=== PATIENT | female | born 1970 | race Caucasian/White ===

== ENCOUNTER 2024-04-26 05:59 | Emergency (ER) | payer OTHER, SELFPAY ==
[2024-04-26 06:07] VITALS: BP 148/74
--- NOTE | 2024-04-26 10:49 | ED.GENMED ---
History of Present Illness
General
Chief Complaint: Back Pain
Source: patient
Time Seen by Provider: 04/26/24 10:38
History of Present Illness
History of Present Illness:
54-year-old female presents complaining of severe pain to the lower back that radiates down the left leg. She notes sharp pain to the anterior gregory. No chest pain or shortness of breath. No fever. No known injury. No urinary retention. She
denies any bowel incontinence or perianal anesthesia. This was associated at the onset with nausea vomiting and diarrhea. The vomiting has slowed the diarrhea slightly. She is not sleeping because of the pain. She is trying [id number]
medications as well as leftover pain medicine without relief. She has an appointment with orthopedics in 3 days. No other complaints.
Phy Exam
Physical Exam
Physical Exam:
General: Uncomfortable appearing female no acute respiratory distress
HEENT: Normocephalic atraumatic
Heart: Regular rate and rhythm
Lungs: Clear no wheeze
Musculoskeletal exam: Tender over the anterior left gregory. Good range of motion left lower extremity
Neurologic exam: Good sensation to the lower extremities bilateral patellar reflex 2+ positive straight leg raise left leg
Vascular: 2+ dorsalis pedis pulse bilateral feet
Skin is warm without a rash
Course
Orders/Labs/Results
Orders:
Orders
04/26/24 10:48
0.9% Sodium Chloride 1000 ml [Nss] 1,000 ml IV BOLUS
Dexamethasone Sod Phosphate [Decadron] 10 mg IV NOW STA
Ketorolac [Toradol] 15 mg IV NOW STA
diazePAM [Valium Injection] 5 mg IV NOW STA
04/26/24 12:51
HYDROmorphone [Dilaudid] 0.5 mg IV NOW STA
Venous Doppler Lwr Ext Left [US Periph Venous LOWER Ext LT] Urgent
Comment:
Reason For Exam: pain in leg
Vital Signs
Initial and Last Documented VS:
Initial Vital Signs
Temp Pulse Resp BP Pulse Ox
98.5 F 78 20 148/74 100
04/26/24 06:07 04/26/24 06:07 04/26/24 06:07 04/26/24 06:07 04/26/24 06:07
Last Documented Vital Signs
Temp Pulse Resp BP Pulse Ox
99.3 F 86 16 152/87 100
04/26/24 11:16 04/26/24 13:13 04/26/24 13:13 04/26/24 13:13 04/26/24 13:13
MDM/Problems Addressed
Differential Diagnosis Includes:
Severe low back pain rating down the left leg. No red flags to suggest cauda equina. No fever to suggest infectious source. I suspect radiculopathy. [id number] medications are not helping. Will try Decadron Toradol Valium
*Critical Care Note
Total Time (30-74mins, 75-104mins- exclusive of procedures): Not Applicable
Update Note
Update Note:
Patient received some relief with medicine here. She was concerned about DVT in her leg. Ultrasound was ordered which was negative for DVT. I suspect radiculopathy as source of discomfort. No rash to suggest shingles. Patient will be discharged
home with prednisone and muscle relaxer and pain medicine. She has an appoint with orthopedics in 2 days
ED Attending Note
-
Portions of this chart may have been created with voice recognition software.� Occasional wrong word or��sound alike� substitutions may have occurred due to the inherent limitations of voice recognition software.
Discharge Plan
Departure
Patient Disposition: Home (Routine Discharge)
Date of Disposition: 04/26/24
Time of Disposition: 14:49
Patient with high blood pressure during this ER visit?: No
Discharge Problem:
Acute lumbar radiculopathy
Instructions: Radiculopathy (DC)
Prescriptions:
New
prednisone 10 mg Tablet
See Rx Instructions .ROUTE .COMPLEX Qty: 45 0RF
Rx Instructions:
Take By Mouth:
50 mg daily x3 days, 40 mg daily x3 days,
30 mg daily x3 days, 20 mg daily x3 days,
10 mg daily x3 days
oxycodone-acetaminophen [Percocet] 5-325 mg tablet
1 tab PO Q4H PRN (Reason: Pain) Qty: 14 0RF
cyclobenzaprine 10 mg tablet
10 mg PO TID PRN (Reason: spasm) Qty: 10 0RF
No Action
fluoxetine 20 mg Tablet
20 mg PO DAILY
ibuprofen [Advil] 200 mg Tablet
400 mg PO Q6H PRN (Reason: pain)
Referrals:
Renea Tam DO [Family Provider] -
Activity Restrictions/Additional Instructions:
Take medicine as needed. Follow-up with orthopedics as planned. Return if needed otherwise
Interventions
Interventions:
*Risk Screen - Suicide Last Done: 04/26/24 06:07
*General Assessment Last Done: 04/26/24 06:07
*Neglect/Abuse Screening Last Done: 04/26/24 06:07
ED- Fall Risk Assessment Last Done: 04/26/24 06:07
*ED COVID-19 Vaccine History Last Done: 04/26/24 06:07
ED-Musculoskeletal Assessment Last Done: 04/26/24 11:21
ED-Peripheral Vascular Assessment Last Done: 04/26/24 11:26
ED-Skin Assessment Last Done: 04/26/24 11:21
Discharge Date and Time
Print Language: MAURITIAN
[2024-04-26] MEDS: NSS 1000 IV (11:08)
[2024-04-26] MEDS: TORADOL 15 MG IV (11:09)
[2024-04-26] MEDS: VALIUM INJECTION 5 MG IV (11:11)
[2024-04-26] MEDS: DECADRON 10 MG IV (11:12)
[2024-04-26 11:16] VITALS: BP 148/79
[2024-04-26] MEDS: DILAUDID 0.5 MG IV (13:10)
[2024-04-26 13:13] VITALS: BP 152/87
[2024-04-26 15:00] VITALS: BP 146/74
== END 2024-04-26 15:05 | disposition home or self-care (01) ==
LOC: EMR 05:59
PROVIDERS: EMERGENCY PHYSICIAN Emergency Medicine; FAMILY PHYSICIAN Family Medicine
DX: M54.16 Radiculopathy, lumbar region (principal)
CPT/HCPCS: 96374; 96375; 96361; 99284; 93971